=== PATIENT | male | born 1995 | race Caucasian/White ===

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

== ENCOUNTER 2017-02-13 21:06 | Emergency (ER) | payer OTHER ==
[~2017-02-13] VITALS: Ht 182.9 cm; Wt 68.0 kg
== END 2017-02-13 23:23 | disposition home or self-care (01) ==
LOC: CED 21:06 → CFTX 21:06
DX: S60.312A Abrasion of left thumb, initial encounter (principal); F41.9 Anxiety disorder, unspecified; F90.9 Attention-deficit hyperactivity disorder, unspecified type; Z71.1 Person with feared health complaint in whom no diagnosis is made; Z23 Encounter for immunization; X58.XXXA Exposure to other specified factors, initial encounter
CPT/HCPCS: 90471; 90715; 99283